=== PATIENT | female | born 1975 | race Asian ===

== ENCOUNTER 2019-06-24 17:01 | Emergency (ER) | payer SELFPAY ==
[2019-06-24] MEDS ORDERED: Ketorolac 30 MG/ML SDV IM ONE (17:29)
--- NOTE | 2019-06-24 18:08 | EDM.PDOC ---
ED HPI GENERAL MEDICAL PROBLEM - General Chief Complaint: Upper Extremity Injury/Pain Stated Complaint: NUMBNESS IN HAND Time Seen by Provider: 06/24/19 17:35 Source of Information: Reports: Patient History Limitations: Reports: No Limitations - History of Present Illness INITIAL COMMENTS - FREE TEXT/NARRATIVE: Patient comes emergency department today with complaints of pain paresthesia to her left arm. For the past week she has had pain that is originating from the left side of her neck that radiates down her left shoulder to the entire to the left arm. Gets worse with movement. She has some numbness sensation to her hand as well. She denies any recent falls or trauma or injury to her neck. She denies any recent injury to her head. She denies a headache or visual disturbances. No chest pain sob or difficulty breathing. 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 No weakness no lightheadedness. No syncope. NO fever no chills no cough. Left Hand Pain Score (Numeric/FACES): 6 - Related Data Allergies Allergy/AdvReac Type Severity Reaction Status Date / Time No Known Allergies Allergy Verified 06/24/19 17:27 Home Meds: Home Meds Cyclobenzaprine [Flexeril] 10 mg PO TID PRN #12 tab 06/24/19 [Rx] predniSONE [Prednisone] 60 mg PO DAILY 4 Days #12 tablet 06/24/19 [Rx] Past Medical History - Past Health History Medical/Surgical History: Denies Medical/Surgical History Social & Family History - Tobacco Use Smoking Status *Q: Never Smoker Review of Systems - Review of Systems Review Of Systems: Comprehensive ROS is negative, except as noted in HPI. ED EXAM, GENERAL - Physical Exam Exam: See Below Exam Limited By: No Limitations General Appearance: Alert, WD/WN, No Apparent Distress Head: Atraumatic, Normocephalic Neck: Limited Range of Motion, Tender Lateral, Other (Positive spurlings to the left as well as shoulder abduction relief test. She has tenderness as well along the left trapezius muscles as well. No wasting of the shoulder. ). No: Carotid Bruit, Lymphadenopathy (L), Lymphadenopathy (R) Respiratory/Chest: No Respiratory Distress, Lungs Clear, No Accessory Muscle Use Peripheral Pulses: 2+: Brachial (L), Brachial (R) Back Exam: Normal Inspection, Full Range of Motion Neurological: Alert, Oriented, Normal Cognition, Normal Reflexes (bilateral arms. ), No Motor/Sensory Deficits Psychiatric: Normal Affect Skin Exam: Warm, Dry, Intact, Normal Color, No Rash Course - Vital Signs Last Recorded V/S: Last Vital Signs Temp 36.6 C 06/24/19 17:10 Pulse 96 06/24/19 17:10 Resp 18 06/24/19 17:10 BP 156/88 H 06/24/19 17:10 Pulse Ox 100 06/24/19 17:10 - Orders/Labs/Meds Meds: Medications Discontinued Medications Generic Name Dose Route Start Last Admin Trade Name Migel PRN Reason Stop Dose Admin Ketorolac Tromethamine 30 mg 06/24/19 17:29 06/24/19 17:43 Toradol IM 06/24/19 17:30 30 mg ONETIME ONE Administration Orphenadrine Citrate 60 mg 06/24/19 17:29 06/24/19 17:42 Norflex IM 06/24/19 17:30 60 mg NOW STA Administration - Re-Assessments/Exams Free Text/Narrative Re-Assessment/Exam: 06/24/19 18:10 with the positive spurlings test and also the shoulder abduction relief test this is clearly a cervical radiculopathy. She was given Ketorolac and norflex in the ED as well as prednisone. We will send her home with prednisone NSAIDs and flexeril. and see physical therapy next available appointment. She is comfortable with this plan and her questions answered. Departure - Departure Time of Disposition: 18:11 Disposition: Home, Self-Care 01 Clinical Impression: Cervical radiculopathy - Discharge Information Instructions: Cervical Radiculopathy, [id number] Additional Instructions: Rest your arm and neck as much as possible. Soft cervical collar for comfort. Ibuprofen 600mg by mouth every 6 hrs Prednisone 60mg a day for the next 5 days. First dose given in the ED> Flexeril, 1 tablet every 6 hrs as needed for pain. RX to [id number]. Return to the ED if new or worsening symptoms. Follow up with PCP in the next 4-6 days if not improving sooner if worse. Presciptions sent to [email or web address] pharmacy in [place]. Sepsis Event Note - Evaluation Sepsis Screening Result: No Definite Risk - Focused Exam Vital Signs: Vital Signs Temp Pulse Resp BP Pulse Ox 06/24/19 17:10 36.6 C 96 18 156/88 H 100 Date Exam was Performed: 06/24/19 Time Exam was Performed: 17:49 - Assessment/Plan Assessment:: Cervical radiculopathy. Plan: Rest your arm and neck as much as possible. Soft cervical collar for comfort. Ibuprofen 600mg by mouth every 6 hrs Prednisone 60mg a day for the next 5 days. First dose given in the ED> Flexeril, 1 tablet every 6 hrs as needed for pain. RX to [facility]. Return to the ED if new or worsening symptoms. Follow up with PCP in the next 4-6 days if not improving sooner if worse.
[2019-06-24] MEDS ORDERED: predniSONE 20 MG Tab PO ONE (18:18)
== END 2019-06-24 18:29 | disposition home or self-care (01) ==
LOC: VM.ED 17:01
DX: M54.12 Radiculopathy, cervical region (principal); Z79.899 Other long term (current) drug therapy
CPT/HCPCS: 96372; 99284; A9270; J1885; J2360

== ENCOUNTER 2021-02-13 18:49 | Emergency (ER) | payer SELFPAY ==
[2021-02-13] MEDS ORDERED: Sodium Chloride 0.9% 10 ML Syringe FLUSH PRN (18:54)
--- NOTE | 2021-02-13 19:23 | EDM.PDOC ---
ED HPI GENERAL MEDICAL PROBLEM - General Chief Complaint: Neurological Problem Time Seen by Provider: 02/13/21 18:49 Source of Information: Reports: Patient History Limitations: Reports: No Limitations - History of Present Illness INITIAL COMMENTS - FREE TEXT/NARRATIVE: Pt. presents to ER after having an approx. 45 second seizure. Pt. has no known history of seizure activity activity. She is living in a hotel room, working at the facility. She has not been feeling well. Friend/roommate states that the patient has been complaining of headache and has been experiencing nausea/vomiting. No cough or congestion. No sore throat or rhinorrhea. Pt. unable to provide a ROS due to decreased LOC/possible postictal state. Friend states that the patient has been does not use drugs/alcohol. Onset: Today Onset Date: 02/13/21 Location: Reports: Head Quality: Reports: Ache Severity: Moderate - Related Data Allergies Allergy/AdvReac Type Severity Reaction Status Date / Time No Known Allergies Allergy Verified 06/24/19 17:27 Home Meds: Home Meds Cyclobenzaprine [Flexeril] 10 mg PO TID PRN #12 tab 06/24/19 [Rx] predniSONE [Prednisone] 60 mg PO DAILY 4 Days #12 tablet 06/24/19 [Rx] Past Medical History - Past Health History Medical/Surgical History: Denies Medical/Surgical History ED ROS GENERAL - Review of Systems Review Of Systems: Unable To Obtain (decreased LOC/?postictal state. See HPI.) Reason Not Obtained: postictal ED EXAM, GENERAL - Physical Exam Exam: See Below Exam Limited By: No Limitations General Appearance: Alert, WD/WN, No Apparent Distress Eye Exam: Bilateral Eye: EOMI, PERRL Nose: Normal Inspection, No Blood Head: Atraumatic, Normocephalic Neck: Normal Inspection, Supple, Non-Tender, Full Range of Motion Respiratory/Chest: No Respiratory Distress, Lungs Clear, Normal Breath Sounds, No Accessory Muscle Use, Chest Non-Tender Cardiovascular: Normal Peripheral Pulses, Regular Rate, Rhythm, No Edema, No Gallop, No JVD, No Murmur, No Rub GI/Abdominal: Normal Bowel Sounds, Non-Tender, No Organomegaly, No Mass, Distended (Female) Exam: Deferred Rectal (Female) Exam: Deferred Back Exam: Normal Inspection, Full Range of Motion Neurological: Other (Initially not following commands. Eventually was able to do pronator drift testing. Remains non-verbal, somnolent. Maintaining her own airway.) Skin Exam: Warm, Dry, Intact, No Rash, Pallor Lymphatic: No Adenopathy Course - Vital Signs Last Recorded V/S: Last Vital Signs Temp 36.6 C 02/13/21 19:00 Pulse 88 02/13/21 19:00 Resp 18 02/13/21 19:00 BP 94/59 L 02/13/21 19:00 Pulse Ox 100 02/13/21 19:00 - Orders/Labs/Meds Orders: Active Orders 24 hr Category Date Time Status Sodium Chloride 0.9% [Saline Flush] Med 02/13/21 18:54 Active 10 ml FLUSH ASDIRECTED PRN levETIRAcetam [Keppra] 1,000 mg Med 02/13/21 20:58 Ordered Sodium Chloride 0.9% [Normal Saline] 100 ml IV ONETIME Peripheral IV Insertion Adult [OM.PC] Routine Oth 02/13/21 18:55 Ordered Medication Orders Sodium Chloride (Sodium Chloride 0.9% 10 Ml Syringe) 10 ml FLUSH ASDIRECTED PRN PRN Reason: Keep Vein Open Labs: Laboratory Tests 02/13/21 02/13/21 02/13/21 Range/Units 19:19 19:19 19:19 WBC 12.2 H (4.0-10.0) x10^3/uL RBC 4.77 (4.00-5.50) x10^6/uL Hgb 7.0 L (12.0-16.0) g/dL Hct 24.8 L (33.0-47.0) % MCV 52.0 L (78.0-93.0) fL MCH 14.7 L (26.0-32.0) pg MCHC 28.2 L (32.0-36.0) g/dL RDW Coeff of Sara 22.0 H (10.0-15.0) % Plt Count 487 H (130-400) x10^3/uL Add Manual Diff Yes Neutrophils % (Manual) 75 (50-80) % Band Neutrophils % 2 (0-6) % Lymphocytes % (Manual) 20 L (25-50) % Monocytes % (Manual) 2 (2-11) % Eosinophils % (Manual) 1 (0-4) % Absolute Neutrophils 9.4 H (1.8-7.7) x10^3/uL Lymphocytes # (Manual) 2.4 (1.0-4.8) x10^3/uL Monocytes # (Manual) 0.2 (0.0-0.8) x10^3/uL Eosinophils # (Manual) 0.1 (0.0-0.5) x10^3/uL Platelet Estimate Increased H Hypochromasia 3+ marked H Anisocytosis 3+ marked H Macrocytosis 3+ marked H PT 10.4 (9.9-12.5) SEC INR 0.9 L (2.0-3.5) APTT (25.6-32.8) SEC Sodium 139 (136-145) mmol/L Potassium 3.5 (3.5-5.1) mmol/L Chloride 102 (98-107) mmol/L Carbon Dioxide 20 L (21-32) mmol/L Anion Gap 20.5 H (5-15) mmol/L BUN 9 (7-18) mg/dL Creatinine 0.9 (0.55-1.02) mg/dL Est Cr Clr Drug Dosing TNP Estimated GFR (MDRD) > 60 Glucose 148 H (70-99) mg/dL Calcium 8.7 (8.5-10.1) mg/dL Corrected Calcium 8.9 (8.5-10.1) mg/dL Phosphorus 3.3 (2.6-4.7) mg/dL Magnesium 2.1 (1.8-2.4) mg/dL Total Bilirubin 0.3 (0.2-1.0) mg/dL AST 12 L (15-37) U/L ALT 11 L (14-59) U/L Alkaline Phosphatase 61 (46-116) U/L Troponin I High Sens 7 (<=51) ng/L C-Reactive Protein < 0.2 (<=0.9) mg/dL Total Protein 8.1 (6.4-8.2) g/dL Albumin 3.8 (3.4-5.0) g/dL Globulin 4.3 Albumin/Globulin Ratio 0.88 TSH, Ultra Sensitive 2.688 (0.358-3.74) uIU/mL Urine Color (YELLOW) Urine Appearance (CLEAR) Urine pH (5.0-8.0) Ur Specific Centuria Urine Protein (NEGATIVE) mg/dL Urine Glucose (UA) (NEGATIVE) mg/dL Urine Ketones (NEGATIVE) mg/dL Urine Occult Blood (NEGATIVE) Urine Nitrite (NEGATIVE) Urine Bilirubin (NEGATIVE) Urine Urobilinogen (0.2) EU/dL Ur Leukocyte Esterase (NEGATIVE) Urine RBC (NOT SEEN) /HPF Urine WBC (NOT SEEN) /HPF Ur Squamous Epith Cells (NOT SEEN) /HPF Urine Bacteria (NOT SEEN) /HPF Urine Mucus (NOT SEEN) /LPF Urine HCG, Qual (NEGATIVE) Urine Opiates Screen (NEGATIVE) Ur Buprenorphine Scrn (NEGATIVE) Ur Oxycodone Screen (NEGATIVE) Urine Methadone Screen (NEGATIVE) Acetaminophen 0 L (10-30) ug/ml Ur Barbiturates Screen (NEGATIVE) Ur Phencyclidine Scrn (NEGATIVE) Ur Amphetamine Screen (NEGATIVE) U Methamphetamines Scrn (NEGATIVE) Urine MDMA Screen (NEGATIVE) U Benzodiazepines Scrn (NEGATIVE) U Cocaine Metab Screen (NEGATIVE) U Marijuana (THC) Screen (NEGATIVE) Ethyl Alcohol < 3 (0-3) mg/dL 02/13/21 02/13/21 02/13/21 Range/Units 19:19 19:20 19:20 WBC (4.0-10.0) x10^3/uL RBC (4.00-5.50) x10^6/uL Hgb (12.0-16.0) g/dL Hct (33.0-47.0) % MCV (78.0-93.0) fL MCH (26.0-32.0) pg MCHC (32.0-36.0) g/dL RDW Coeff of Sara (10.0-15.0) % Plt Count (130-400) x10^3/uL Add Manual Diff Neutrophils % (Manual) (50-80) % Band Neutrophils % (0-6) % Lymphocytes % (Manual) (25-50) % Monocytes % (Manual) (2-11) % Eosinophils % (Manual) (0-4) % Absolute Neutrophils (1.8-7.7) x10^3/uL Lymphocytes # (Manual) (1.0-4.8) x10^3/uL Monocytes # (Manual) (0.0-0.8) x10^3/uL Eosinophils # (Manual) (0.0-0.5) x10^3/uL Platelet Estimate Hypochromasia Anisocytosis Macrocytosis PT (9.9-12.5) SEC INR (2.0-3.5) APTT 19.9 L (25.6-32.8) SEC Sodium (136-145) mmol/L Potassium (3.5-5.1) mmol/L Chloride (98-107) mmol/L Carbon Dioxide (21-32) mmol/L Anion Gap (5-15) mmol/L BUN (7-18) mg/dL Creatinine (0.55-1.02) mg/dL Est Cr Clr Drug Dosing Estimated GFR (MDRD) Glucose (70-99) mg/dL Calcium (8.5-10.1) mg/dL Corrected Calcium (8.5-10.1) mg/dL Phosphorus (2.6-4.7) mg/dL Magnesium (1.8-2.4) mg/dL Total Bilirubin (0.2-1.0) mg/dL AST (15-37) U/L ALT (14-59) U/L Alkaline Phosphatase (46-116) U/L Troponin I High Sens (<=51) ng/L C-Reactive Protein (<=0.9) mg/dL Total Protein (6.4-8.2) g/dL Albumin (3.4-5.0) g/dL Globulin Albumin/Globulin Ratio TSH, Ultra Sensitive (0.358-3.74) uIU/mL Urine Color Yellow (YELLOW) Urine Appearance Clear (CLEAR) Urine pH 5.5 (5.0-8.0) Ur Specific Centuria >=1.030 Urine Protein 30 H (NEGATIVE) mg/dL Urine Glucose (UA) Negative (NEGATIVE) mg/dL Urine Ketones Trace H (NEGATIVE) mg/dL Urine Occult Blood Small H (NEGATIVE) Urine Nitrite Negative (NEGATIVE) Urine Bilirubin Negative (NEGATIVE) Urine Urobilinogen 0.2 (0.2) EU/dL Ur Leukocyte Esterase Negative (NEGATIVE) Urine RBC 5-10 H (NOT SEEN) /HPF Urine WBC 0-5 (NOT SEEN) /HPF Ur Squamous Epith Cells Few H (NOT SEEN) /HPF Urine Bacteria Rare (NOT SEEN) /HPF Urine Mucus Few H (NOT SEEN) /LPF Urine HCG, Qual Negative (NEGATIVE) Urine Opiates Screen (NEGATIVE) Ur Buprenorphine Scrn (NEGATIVE) Ur Oxycodone Screen (NEGATIVE) Urine Methadone Screen (NEGATIVE) Acetaminophen (10-30) ug/ml Ur Barbiturates Screen (NEGATIVE) Ur Phencyclidine Scrn (NEGATIVE) Ur Amphetamine Screen (NEGATIVE) U Methamphetamines Scrn (NEGATIVE) Urine MDMA Screen (NEGATIVE) U Benzodiazepines Scrn (NEGATIVE) U Cocaine Metab Screen (NEGATIVE) U Marijuana (THC) Screen (NEGATIVE) Ethyl Alcohol (0-3) mg/dL 02/13/ Range/Units 19:20 WBC (4.0-10.0) x10^3/uL RBC (4.00-5.50) x10^6/uL Hgb (12.0-16.0) g/dL Hct (33.0-47.0) % MCV (78.0-93.0) fL MCH (26.0-32.0) pg MCHC (32.0-36.0) g/dL RDW Coeff of Sara (10.0-15.0) % Plt Count (130-400) x10^3/uL Add Manual Diff Neutrophils % (Manual) (50-80) % Band Neutrophils % (0-6) % Lymphocytes % (Manual) (25-50) % Monocytes % (Manual) (2-11) % Eosinophils % (Manual) (0-4) % Absolute Neutrophils (1.8-7.7) x10^3/uL Lymphocytes # (Manual) (1.0-4.8) x10^3/uL Monocytes # (Manual) (0.0-0.8) x10^3/uL Eosinophils # (Manual) (0.0-0.5) x10^3/uL Platelet Estimate Hypochromasia Anisocytosis Macrocytosis PT (9.9-12.5) SEC INR (2.0-3.5) APTT (25.6-32.8) SEC Sodium (136-145) mmol/L Potassium (3.5-5.1) mmol/L Chloride (98-107) mmol/L Carbon Dioxide (21-32) mmol/L Anion Gap (5-15) mmol/L BUN (7-18) mg/dL Creatinine (0.55-1.02) mg/dL Est Cr Clr Drug Dosing Estimated GFR (MDRD) Glucose (70-99) mg/dL Calcium (8.5-10.1) mg/dL Corrected Calcium (8.5-10.1) mg/dL Phosphorus (2.6-4.7) mg/dL Magnesium (1.8-2.4) mg/dL Total Bilirubin (0.2-1.0) mg/dL AST (15-37) U/L ALT (14-59) U/L Alkaline Phosphatase (46-116) U/L Troponin I High Sens (<=51) ng/L C-Reactive Protein (<=0.9) mg/dL Total Protein (6.4-8.2) g/dL Albumin (3.4-5.0) g/dL Globulin Albumin/Globulin Ratio TSH, Ultra Sensitive (0.358-3.74) uIU/mL Urine Color (YELLOW) Urine Appearance (CLEAR) Urine pH (5.0-8.0) Ur Specific Centuria Urine Protein (NEGATIVE) mg/dL Urine Glucose (UA) (NEGATIVE) mg/dL Urine Ketones (NEGATIVE) mg/dL Urine Occult Blood (NEGATIVE) Urine Nitrite (NEGATIVE) Urine Bilirubin (NEGATIVE) Urine Urobilinogen (0.2) EU/dL Ur Leukocyte Esterase (NEGATIVE) Urine RBC (NOT SEEN) /HPF Urine WBC (NOT SEEN) /HPF Ur Squamous Epith Cells (NOT SEEN) /HPF Urine Bacteria (NOT SEEN) /HPF Urine Mucus (NOT SEEN) /LPF Urine HCG, Qual (NEGATIVE) Urine Opiates Screen Negative (NEGATIVE) Ur Buprenorphine Scrn Negative (NEGATIVE) Ur Oxycodone Screen Negative (NEGATIVE) Urine Methadone Screen Negative (NEGATIVE) Acetaminophen (10-30) ug/ml Ur Barbiturates Screen Negative (NEGATIVE) Ur Phencyclidine Scrn Negative (NEGATIVE) Ur Amphetamine Screen Negative (NEGATIVE) U Methamphetamines Scrn Negative (NEGATIVE) Urine MDMA Screen Negative (NEGATIVE) U Benzodiazepines Scrn Negative (NEGATIVE) U Cocaine Metab Screen Negative (NEGATIVE) U Marijuana (THC) Screen Negative (NEGATIVE) Ethyl Alcohol (0-3) mg/dL Meds: Medications Generic Name Dose Route Start Last Admin Trade Name Freq PRN Reason Stop Dose Admin Sodium Chloride 10 ml 02/13/21 18:54 Sodium Chloride 0.9% 10 Ml Syringe FLUSH ASDIRECTED PRN Keep Vein Open - Radiology Interpretation Free Text/Narrative:: ? L temporal lobe ischemic infraction, also questions of small IC hemorrhage. Images pushed to buckley. Departure - Departure Time of Disposition: 21:00 Disposition: DC/Tfer to Acute Hospital 02 Clinical Impression: CVA (cerebral vascular accident), New onset seizure, Anemia - Discharge Information Forms: ED Department Discharge Sepsis Event Note (ED) - Focused Exam Vital Signs: Vital Signs Temp Pulse Resp BP Pulse Ox 02/13/21 19:00 36.6 C 88 18 94/59 L 100 - Problem List Review Problem List Initiated/Reviewed/Updated: Yes - My Orders Last 24 Hours: My Active Orders 02/13/21 18:54 Sodium Chloride 0.9% [Saline Flush] 10 ml FLUSH ASDIRECTED PRN 02/13/21 18:55 Peripheral IV Insertion Adult [OM.PC] Routine 02/13/21 20:58 levETIRAcetam [Keppra] 1,000 mg Sodium Chloride 0.9% [Normal Saline] 100 ml IV ONETIME - Assessment/Plan Last 24 Hours: My Active Orders 02/13/21 18:54 Sodium Chloride 0.9% [Saline Flush] 10 ml FLUSH ASDIRECTED PRN 02/13/21 18:55 Peripheral IV Insertion Adult [OM.PC] Routine 02/13/21 20:58 levETIRAcetam [Keppra] 1,000 mg Sodium Chloride 0.9% [Normal Saline] 100 ml IV ONETIME Plan: Pt. will be transported to [facility] ground ambulance. She will require CTA/MRI and further evaluation. Initially patient was not following commands, but eventually was able to lift all 4 extremities without drift. She will be loaded with keppra 1000mg IV. Dr. White is accepting. Discussed case with patient's daughter. (Daughter, Radha [phone]).
[2021-02-13 19:34] LABS: BARBITURATE SCREEN,URINE NEGATIVE (NEGATIVE)
[2021-02-13 19:35] LABS: BENZODIAZEPINES SCREEN,URINE NEGATIVE (NEGATIVE); BUPRENORPHINE SCREEN,URINE NEGATIVE (NEGATIVE); METHAMPHETAMINE SCREEN, URINE NEGATIVE (NEGATIVE); THC SCREEN,URINE 50 NG/ML NEGATIVE (NEGATIVE)
[2021-02-13 19:52] LABS: CHLORIDE,CL 102 mmol/L (98-107); SODIUM,NA 139 mmol/L (136-145)
[2021-02-13 19:55] LABS: ANION GAP 20.5 mmol/L (5-15)
[2021-02-13 20:04] LABS: ACETAMINOPHEN 0 ug/ml (10-30)
--- NOTE | 2021-02-13 20:17 | CT ---
[id number] CT/CT Head WO IV EXAM: CT Head WO IV CLINICAL DATA: QUESTION SEIZURE ACTIVITY COMPARISON STUDY: None Discussion/impression: Nonmass-like and geographic area of hypodensity in the left temporal lobe this obscures the espinoza-white matter differentiation and is possibly a subacute evolving ischemic infarction. MRI of the brain is recommended for further evaluation. Focal and somewhat wedge-shaped area of hyperdensity is seen in the expected location of the dural venous sinuses this is likely the transverse sinus. Although a small amount of acute intracranial hemorrhage is possible. Consider follow-up CT examination in 12-24 hours as clinically warranted. Asymmetric thickening of the left temporalis muscle. Finding is nonspecific and possibly intramuscular contusion. Correlate for history of blunt trauma. Calvarium is intact. Yonathan Bailey MD 02/13/212015 Thank you for allowing us to participate in the care of your patient.
[2021-02-13] MEDS ORDERED: levETIRAcetam 1,000 MG in Sodium Chloride 0.9% 100 ML IV ONE (20:58)
[2021-02-13] MEDS ORDERED: Ondansetron 4 MG/2 ML SDV IVPUSH ONE (21:14)
[2021-02-13] MEDS ORDERED: Ondansetron 4 MG/2 ML SDV ONE (21:15)
[2021-02-13] MEDS ORDERED: levETIRAcetam in NaCl (iso-os) 500 MG in Premix Bag 1 BAG IV ONE ×2 (21:22)
== END 2021-02-13 21:45 | disposition short-term general hospital (02) ==
LOC: VM.ED 18:49
DX: I63.9 Cerebral infarction, unspecified (principal); R56.9 Unspecified convulsions; D64.9 Anemia, unspecified
CPT/HCPCS: 36415; 70450; 80053; 80143; 80305-QW; 80307; 81001; 81025; 83735; 84100; 84443; 84484; 85025; 85610; 85730; 86140; 93005; 96365; 96375; 99285-25; J1953; J2405